=== PATIENT | female | born 1980 | race American Indian/Alaskan Native ===

== ENCOUNTER 2021-09-14 09:57 | Outpatient (CLI) | payer BC ==
--- NOTE | 2021-09-14 10:29 | XRay Report ---
CHEST 2 VIEWS INDICATION / CLINICAL INFORMATION: I49.2. COMPARISON: None available. FINDINGS: SUPPORT DEVICES: None. HEART / MEDIASTINUM: No significant abnormality. LUNGS / PLEURA: No significant pulmonary or pleural abnormality. No pneumothorax. ADDITIONAL FINDINGS: No significant additional findings. IMPRESSION: 1. No acute findings. Signer Name: Vince Todd MD Signed: 09/14/2021 10:24 AM Workstation Name: [email or web address]
== END 2021-09-14 09:58 | disposition home or self-care (01) ==
LOC: XRAY 09:57
PROVIDERS: ATTEND Internal Medicine
DX: I49.2 Junctional premature depolarization (principal)
CPT/HCPCS: 71046